=== PATIENT | female | born 1950 | race Caucasian/White ===

== ENCOUNTER → 2016-09-05 | Outpatient (CLI) | payer BC ==
[2015-11-23 10:53] VITALS: BP 145/88
[~2016-09-05] MED LIST: CHOL100013 PO; MAGN250T5 PO; MULT-245 PO; OMEG500C PO
--- NOTE | 2016-09-05 10:52 | KCIC ---
PROCEDURE Bilateral digital screening mammogram. HISTORY 65-year-old female presents for screening mammography. TECHNIQUE Full field digital craniocaudal and mediolateral oblique views of both breasts are obtained. Computer-aided detection is applied. COMPARISON 08/23/2015 and 06/30/2014 FINDINGS Breast parenchymal composition: Level C - Heterogeneously dense. There is no suspicious mass, calcification or architectural distortion within either breast. IMPRESSION BI-RADS Category 2: Benign findings. Annual mammography is recommended. Mammography is not 100% sensitive in detecting breast cancer. Therefore, a self breast exam and a clinical breast exam are very important. A negative mammogram does not negate a clinically suspicious finding and should not result in a delay in biopsying a clinically suspicious abnormality. This patient's information has been entered into a reminder system for the patient to be notified with the results of this examination and a target date for her next mammograms. Electronically signed by: Analia Esquivel (Sep 05, 2016 10:51:17)
== END | disposition home or self-care (01) ==
LOC: KCIC MAMMO 09:48
DX: Z12.31 Encounter for screening mammogram for malignant neoplasm of breast (principal)
CPT/HCPCS: G0202; 77067

== ENCOUNTER → 2017-09-27 | Outpatient (CLI) | payer OTHER | END | disposition home or self-care (01) | LOC: KCIC MAMMO 08:46 | DX: Z12.31 Encounter for screening mammogram for malignant neoplasm of breast (principal) | CPT/HCPCS: 77067 ==

== ENCOUNTER 2018-12-25 22:34 | Emergency (ER) | payer BC, MEDICARE ==
[~2018-12-25] VITALS: Ht 167.6 cm; Wt 77.1 kg
[~2018-12-25 22:34] MED LIST changes: +MAGN250T10 PO; -MAGN250T5 PO
[2018-12-25 22:43] VITALS: BP 169/92
--- NOTE | 2018-12-25 23:05 | PHYS DOC ---
Past Medical History Past Medical History: No Pertinent History (JAYNE FRIEND APRN) Past Surgical History: Tonsillectomy, Tubal ligation, Other Additional Past Surgical Histo: thyroid lumpectomy (JAYNE FRIEND APRN) Alcohol Use: Occasionally Drug Use: None (JAYNE FRIEND APRN) Adult General Chief Complaint Chief Complaint: LOWER EXT PAIN HPI HPI Patient is a 68 year old [female] who presents with [right leg feeling of tightness. Does reports she has had three episodes similar to this in the past, has seen her PCP once for it and had no diagnosis. Last time was several months ago. States the pain comes for a few minutes, and then goes away without incident. Reports today she felt the tightness while they were driving. Denies trauma, denies history of blood clots. Denies other discomfort.] (JAYNE FRIEND APRN) Review of Systems Review of Systems Constitutional: Denies fever or chills [] Eyes: Denies change in visual acuity, redness, or eye pain [] HENT: Denies nasal congestion or sore throat [] Respiratory: Denies cough or shortness of breath [] Cardiovascular: No additional information not addressed in HPI [] GI: Denies abdominal pain, nausea, vomiting, bloody stools or diarrhea [] : Denies dysuria or hematuria [] Musculoskeletal: Denies back pain or joint pain [] Integument: Denies rash or skin lesions [] Neurologic: Denies headache, focal weakness or sensory changes [] Endocrine: Denies polyuria or polydipsia [] All other systems were reviewed and found to be within normal limits, except as documented in this note. (JAYNE FRIEND APRN) Allergies Allergies Allergies Coded Allergies Type Severity Reaction Last Updated Verified Sulfa (Sulfonamide Antibiotics) Allergy Intermediate hives 11/23/15 Yes (DEANNA ABERNATHY MD) Physical Exam Physical Exam Constitutional: Well developed, well nourished, no acute distress, non-toxic appearance. [] HENT: Normocephalic, atraumatic, bilateral external ears normal, oropharynx moist, no oral exudates, nose normal. [] Eyes: PERRLA, EOMI, conjunctiva normal, no discharge. [] Neck: Normal range of motion, no tenderness, supple, no stridor. [] Cardiovascular:Heart rate regular rhythm, no murmur [] Lungs & Thorax: Bilateral breath sounds clear to auscultation [] Abdomen: Bowel sounds normal, soft, no tenderness, no masses, no pulsatile masses. [] Skin: Warm, dry, no erythema, no rash. [] Back: No tenderness, no CVA tenderness. [] Extremities: No tenderness, no cyanosis, no clubbing, ROM intact, no edema. Left leg = Right leg with approximately 5mm difference in diameters measured at calf, with right slightly larger. Negative Ruthie's sign. No cords palpated to leg. Small approx 1 cm nodule noted posterior to right knee, not found behind left knee. No tenderness on palpation. Varicocities noted to bilateral lower legs. Circulation and sensation intact without noted cyanosis, no erythema, no warmth noted to leg. [] Neurologic: Alert and oriented X 3, normal motor function, normal sensory function, no focal deficits noted. [] Psychologic: Affect normal, judgement normal, mood normal. [] (JAYNE FRIEND APRN) Current Patient Data Vital Signs Vital Signs Date Time Temp Pulse Resp B/P (MAP) Pulse Ox O2 Delivery O2 Flow Rate FiO2 12/25/18 22:43 98.2 102 18 169/92 (117) 99 Room Air 98.2 (DEANNA ABERNATHY MD) Lab Values Laboratory Tests Test 12/25/18 23:05 White Blood Count 6.9 x10^3/uL (4.0-11.0) Red Blood Count 4.43 x10^6/uL (3.50-5.40) Hemoglobin 13.0 g/dL (12.0-15.5) Hematocrit 39.4 % (36.0-47.0) Mean Corpuscular Volume 89 fL (79-100) Mean Corpuscular Hemoglobin 29 pg (25-35) Mean Corpuscular Hemoglobin Concent 33 g/dL (31-37) Red Cell Distribution Width 14.6 % (11.5-14.5) H Platelet Count 205 x10^3/uL (140-400) Neutrophils (%) (Auto) 47 % (31-73) Lymphocytes (%) (Auto) 37 % (24-48) Monocytes (%) (Auto) 10 % (0-9) H Eosinophils (%) (Auto) 5 % (0-3) H Basophils (%) (Auto) 1 % (0-3) Neutrophils # (Auto) 3.3 x10^3uL (1.8-7.7) Lymphocytes # (Auto) 2.6 x10^3/uL (1.0-4.8) Monocytes # (Auto) 0.7 x10^3/uL (0.0-1.1) Eosinophils # (Auto) 0.3 x10^3/uL (0.0-0.7) Basophils # (Auto) 0.0 x10^3/uL (0.0-0.2) Sodium Level 143 mmol/L (136-145) Potassium Level 3.7 mmol/L (3.5-5.1) Chloride Level 106 mmol/L (98-107) Carbon Dioxide Level 28 mmol/L (21-32) Anion Gap 9 (6-14) Blood Urea Nitrogen 22 mg/dL (7-20) H Creatinine 0.9 mg/dL (0.6-1.0) Estimated GFR (Cockcroft-Gault) 62.6 Glucose Level 102 mg/dL (70-99) H Calcium Level 9.5 mg/dL (8.5-10.1) Laboratory Tests 12/25/18 23:05 Laboratory Tests 12/25/18 23:05 (DEANNA ABERNATHY MD) EKG EKG [] (JAYNE FRIEND APRN) Radiology/Procedures Radiology/Procedures [] (JAYNE FRIEND APRN) Course & Med Decision Making Course & Med Decision Making Pertinent Labs and Imaging studies reviewed. (See chart for details) [WELLS score = 0 ] (JAYNE FRIEND APRN) Course & Med Decision Making s/o from jayne u/s neg for dvt. i reassured pt. pt has a pulse. (DEANNA ABERNATHY MD) Dragon Disclaimer Dragon Disclaimer This electronic medical record was generated, in whole or in part, using a voice recognition dictation system. (JAYNE FRIEND APRN) Departure Departure Impression: Primary Impression: Right leg pain Referrals: GABBY QUINN (PCP) JAYNE FRIEND APRN Dec 25, 2018 23:05 DEANNA ABERNATHY MD Dec 26, 2018 00:32
[2018-12-25 23:16] LABS: BASO % 1 % (0-3); EOS # 0.3 x10^3/uL (0.0-0.7); EOS % 5 % (0-3); HEMATOCRIT 39.4 % (36.0-47.0); LYMPH # 2.6 x10^3/uL (1.0-4.8); LYMPH % 37 % (24-48); MEAN CORPUSCULAR HEMOGLOBIN 29 pg (25-35); MEAN CORPUSCULAR HGB CONC 33 g/dL (31-37); MEAN CORPUSCULAR VOLUME 89 fL (79-100); MONO # 0.7 x10^3/uL (0.0-1.1); MONO % 10 % (0-9); NEUT # 3.3 x10^3uL (1.8-7.7); NEUT % 47 % (31-73); PLATELET COUNT 205 x10^3/uL (140-400); RED BLOOD COUNT 4.43 x10^6/uL (3.50-5.40); RED CELL DISTRIBUTION WIDTH 14.6 % (11.5-14.5); WHITE BLOOD COUNT 6.9 x10^3/uL (4.0-11.0)
[2018-12-25 23:25] LABS: CALCIUM 9.5 mg/dL (8.5-10.1); CREATININE 0.9 mg/dL (0.6-1.0); GFR 62.6; POTASSIUM 3.7 mmol/L (3.5-5.1)
--- NOTE | 2018-12-25 23:53 | RAD ---
Right Leg Venous Doppler Ultrasound, 12/25/2018 Indication: Right leg pain, history of travel Comparison: None available Procedure: Real-time grayscale, color flow color duplex Doppler and spectral analysis are obtained with and without compression in the area of the common femoral vein, superficial femoral vein - femoral vein junction, main femoral vein (superficial femoral vein) and popliteal vein. Veins of the proximal calf are also imaged. Findings: There is normal duplex flow, color flow and compressibility of all visualized vein segments. No evidence of deep venous thrombus is present. Impression: Negative venous Doppler of right lower extremity Electronically signed by: Brandy Neal MD (12/25/2018 11:50 PM) [facility]
== END 2018-12-26 00:14 | disposition home or self-care (01) ==
LOC: ER 22:34
DX: M79.604 Pain in right leg (principal); Z98.51 Tubal ligation status; Z90.89 Acquired absence of other organs; Z88.2 Allergy status to sulfonamides
CPT/HCPCS: 36415; 80048; 85025; 93971; 99285-25